=== PATIENT | male | born 1965 | race Caucasian/White ===

== ENCOUNTER → 2018-01-17 | Outpatient (CLI) | payer MEDICAID ==
[~2018-01-17] MED LIST: OMEP20TA62 PO
[2018-01-17 10:25] LABS: BASOPHILS # (AUTO) 0.03 x10^3/uL (0-0.1); BASOPHILS % (AUTO) 1 % (0-1); EOSINOPHILS # (AUTO) 0.27 x10^3/uL (0-0.4); EOSINOPHILS % (AUTO) 5 % (1-7); LYMPHOCYTES # (AUTO) 1.43 x10^3/uL (1-3.4); LYMPHOCYTES % (AUTO) 27 % (22-44); MD NO; MEAN CORPUSCULAR HEMOGLOBIN 29.1 pg (27.5-34.5); MEAN CORPUSCULAR HGB CONC 34.4 g/dL (33.2-36.2); MEAN CORPUSCULAR VOLUME 84.7 fL (81-97); MEAN PLATELET VOLUME 6.2 fL (7.4-10.4); MONOCYTES # (AUTO) 0.52 x10^3/uL (0.2-0.8); MONOCYTES % (AUTO) 10 % (2-9); NEUTROPHILS % (AUTO) 57 % (42-75); PLATELET COUNT 238 x10^3/uL (130-400); RED BLOOD COUNT 5.57 x10^6/uL (4.38-5.82); RED CELL DISTRIBUTION WIDTH 13.3 % (9.4-14.8)
[2018-01-17 10:31] LABS: INTERNATIONAL NORMALIZED RATIO 1.02 (0.93-1.1); PROTHROMBIN TIME 10.5 Seconds (9.6-11.5)
[2018-01-17 10:36] LABS: ALANINE AMINOTRANSFERASE 48 U/L (12-78); ALBUMIN 3.8 g/dL (3.4-5.0); ANION GAP 7 mmol/L (5-15); CALCIUM 8.6 mg/dL (8.5-10.1); CHLORIDE 110 mmol/L (98-107); CREATININE 1.04 mg/dL (0.7-1.3)
[2018-01-17 10:38] LABS: ALKALINE PHOSPHATASE 76 U/L (45-117); BILIRUBIN,TOTAL 0.7 mg/dL (0.2-1.0); TOTAL PROTEIN 7.9 g/dL (6.4-8.2)
== END | disposition home or self-care (01) ==
LOC: STAR 09:26
PROVIDERS: ATTEND Surgery
DX: Z01.818 Encounter for other preprocedural examination (principal)
CPT/HCPCS: 36415; 80053; 85025; 85610; 93005

== ENCOUNTER 2018-01-24 06:51 | Day surgery (SDC) | payer MEDICAID ==
[~2018-01-24] VITALS: Ht 182.9 cm; Wt 105.5 kg
[2018-01-24] MEDS ORDERED: BUPIVACAINE 0.25% ONE (06:56)
[2018-01-24 07:16] VITALS: BP 130/95
[2018-01-24] MEDS ORDERED: LACTATED RINGERS 1,000 ML IV SCH (07:21)
[2018-01-24] MEDS ORDERED: MIDAZOLAM 1 MG/ML, 2ML ONE (08:00)
[2018-01-24] MEDS ORDERED: FENTANYL PF 250 MCG/5ML ONE ×2 (08:00→11:00)
[2018-01-24] MEDS ORDERED: CEFAZOLIN 1,000 MG ONE ×2 (09:13)
[2018-01-24] MEDS ORDERED: PROPOFOL 10 MG/ML, 20ML ONE (09:14)
[2018-01-24] MEDS ORDERED: DEXAMETHASONE 4 MG/ML, 1ML ONE ×5 (09:14→10:39)
[2018-01-24] MEDS ORDERED: ONDANSETRON 2MG/ML, 2ML ONE (09:14)
[2018-01-24] MEDS ORDERED: BUPIVACAINE/PF-EPI 0.25% 1:200K IM ONE (09:28)
[2018-01-24] MEDS ORDERED: ONDANSETRON ODT 8 MG PO PRN (10:00)
[2018-01-24] MEDS ORDERED: OXYcodone 5 MG/5 ML ORAL.SOL UDC PO PRN (10:00)
[2018-01-24] MEDS ORDERED: ACETAMINOPHEN 325 MG TABLET PO PRN (10:00)
[2018-01-24] MEDS ORDERED: MEPERIDINE/PF 25MG/0.5ML IVPush PRN (10:00)
[2018-01-24] MEDS ORDERED: HYDROmorphone 1 MG/ML, 1ML IV PRN (10:00)
[2018-01-24] MEDS ORDERED: FENTANYL PF 100 MCG/2ML IV PRN (10:00)
[2018-01-24] MEDS ORDERED: FENTANYL PF 100 MCG/2ML ONE (10:01)
[2018-01-24] MEDS ORDERED: PROPOFOL 50 ML ONE (10:36)
[2018-01-24] MEDS ORDERED: ACETAMINOPHEN 650 MG/20.3 ML UDC ONE (10:47)
[2018-01-24] MEDS ORDERED: OXYcodone 5 MG/5 ML ORAL.SOL UDC ONE (10:47)
[2018-01-24] MEDS ORDERED: KETOROLAC 30 MG/1 ML ONE (15:42)
== END 2018-01-24 12:40 ==
LOC: OUT 06:51
PROVIDERS: ATTEND Surgery
DX: K40.90 Unilateral inguinal hernia, without obstruction or gangrene, not specified as recurrent (principal); Z85.46 Personal history of malignant neoplasm of prostate; K21.9 Gastro-esophageal reflux disease without esophagitis
CPT/HCPCS: 49505; C1781; J0690; J1100; J1885; J2250; J2405; J2704; J3010; J3490; J7120

== ENCOUNTER → 2020-08-12 | Outpatient (CLI) | payer MEDICAID ==
[~2020-08-12] MED LIST changes: +OMNIPAQUE 350 MG/ML, 75ML BOTTLE ONE
== END | disposition home or self-care (01) ==
LOC: CFH 13:41
DX: R91.8 Other nonspecific abnormal finding of lung field (principal); D48.0 Neoplasm of uncertain behavior of bone and articular cartilage
CPT/HCPCS: 71260; Q9967

== ENCOUNTER 2020-09-18 07:04 | Emergency (ER) | payer MEDICAID ==
[~2020-09-18] VITALS: Ht 182.9 cm; Wt 92.9 kg
[~2020-09-18 07:04] MED LIST changes: -OMNIPAQUE 350 MG/ML, 75ML BOTTLE ONE
--- NOTE | 2020-09-18 07:20 | NUR ---
pt is a 55m who comes in complaining of hematuria. He denies any pain except for 1 episode 5 days ago. He had a work up with [facility] medicine this week that showed blood in his urine and referred him to his urologist for CT stating it could be cancer. He had a prostectomy 3-4 years ago for prostate cancer. He was very anxious about it and came to the ER this morning. Urine specimin collected, continuous sp02 and cycling vitals in place. Call light within reach.
[2020-09-18 07:48] LABS: MICROSCOPIC AUTO
[2020-09-18 07:50] LABS: BASOPHILS % (AUTO) 1 % (0-1); EOSINOPHILS % (AUTO) 1 % (1-7); LYMPHOCYTES % (AUTO) 21 % (22-44); MEAN CORPUSCULAR HEMOGLOBIN 29.7 pg (27.5-34.5); MEAN CORPUSCULAR HGB CONC 34.5 g/dL (33.2-36.2); MONOCYTES % (AUTO) 7 % (2-9); NEUTROPHILS % (AUTO) 71 % (42-75); PLATELET COUNT 216 x10^3/uL (130-400); RED BLOOD COUNT 5.38 x10^6/uL (4.38-5.82); RED CELL DISTRIBUTION WIDTH 13.3 % (9.4-14.8)
[2020-09-18 07:53] LABS: MD NO
[2020-09-18 07:59] LABS: ALANINE AMINOTRANSFERASE 30 U/L (12-78); ALBUMIN 3.9 g/dL (3.4-5.0); ANION GAP 10 mmol/L (5-15); CALCIUM 8.5 mg/dL (8.5-10.1); CHLORIDE 111 mmol/L (98-107); CREATININE 1.09 mg/dL (0.7-1.3)
[2020-09-18] MEDS ORDERED: SODIUM CHLORIDE FLUSH 10ML SYR IVF ONE (08:00)
[2020-09-18 08:01] LABS: ALKALINE PHOSPHATASE 69 U/L (45-117); BILIRUBIN,TOTAL 0.7 mg/dL (0.2-1.0); TOTAL PROTEIN 7.8 g/dL (6.4-8.2)
--- NOTE | 2020-09-18 08:11 | NUR ---
pt to ct via topher
--- NOTE | 2020-09-18 08:13 | NUR ---
pt back from CT
[2020-09-18] MEDS ORDERED: OMNIPAQUE 350 MG/ML, 100ML BOTTLE ONE (08:15)
--- NOTE | 2020-09-18 08:47 | NUR ---
pt ambulated to restroom with steady gait.
--- NOTE | 2020-09-18 09:05 | NUR ---
Dr. Red at bedside for discussion of plan of care
[2020-09-18 09:53] VITALS: BP 130/92
== END 2020-09-18 09:55 | disposition home or self-care (01) ==
LOC: ED 09:11
DX: R31.29 Other microscopic hematuria (principal); R94.8 Abnormal results of function studies of other organs and systems; K21.9 Gastro-esophageal reflux disease without esophagitis; Z85.46 Personal history of malignant neoplasm of prostate
CPT/HCPCS: 36415; 74177; 80053; 81001; 83690; 85025; 99285; Q9967

== ENCOUNTER 2020-09-29 21:43 | Inpatient (IN) | payer MEDICAID ==
[~2020-09-29] VITALS: Ht 182.9 cm; Wt 90.8 kg
[2020-09-29] MEDS ORDERED: SODIUM CHLORIDE 0.9% 1,000ML IVBOLUS ONE (22:00)
[2020-09-29 22:32] LABS: BASOPHILS % (AUTO) 0 % (0-1); EOSINOPHILS % (AUTO) 1 % (1-7); LYMPHOCYTES % (AUTO) 15 % (22-44); MEAN CORPUSCULAR HEMOGLOBIN 29.6 pg (27.5-34.5); MEAN CORPUSCULAR HGB CONC 34.9 g/dL (33.2-36.2); MEAN PLATELET VOLUME 6.4 fL (7.4-10.4); MONOCYTES % (AUTO) 7 % (2-9); NEUTROPHILS % (AUTO) 77 % (42-75); PLATELET COUNT 177 x10^3/uL (130-400); RED BLOOD COUNT 5.22 x10^6/uL (4.38-5.82); RED CELL DISTRIBUTION WIDTH 13.3 % (9.4-14.8)
[2020-09-29 22:34] LABS: MD NO
[2020-09-29 22:42] LABS: ALANINE AMINOTRANSFERASE 32 U/L (12-78); ALBUMIN 3.8 g/dL (3.4-5.0); ANION GAP 9 mmol/L (5-15); CALCIUM 8.4 mg/dL (8.5-10.1); CHLORIDE 110 mmol/L (98-107)
[2020-09-29 22:45] LABS: ALKALINE PHOSPHATASE 63 U/L (45-117); BILIRUBIN,TOTAL 0.6 mg/dL (0.2-1.0); CREATININE 0.98 mg/dL (0.7-1.3); TOTAL PROTEIN 7.6 g/dL (6.4-8.2)
[2020-09-30] MEDS ORDERED: SODIUM CHLORIDE 0.9% 1,000ML IVBOLUS ONE
[2020-09-30] MEDS ORDERED: ONDANSETRON 2MG/ML, 2ML ONE (00:45)
[2020-09-30] MEDS ORDERED: HYDROmorphone 1 MG/ML, 1ML INJ ONE (00:45)
[2020-09-30] MEDS ORDERED: HYDROmorphone 2 MG/ML, 1ML IVPush PRN ×2 (01:00→03:30)
[2020-09-30] MEDS ORDERED: ONDANSETRON 2MG/ML, 2ML IVPush ONE (01:00)
[2020-09-30] MEDS ORDERED: OMNIPAQUE 350 MG/ML, 100ML BOTTLE ONE (01:19)
[2020-09-30] MEDS ORDERED: SODIUM CHLORIDE 0.9% 1,000 ML IV ONE (02:30)
[2020-09-30] MEDS ORDERED: MORPHINE SULFATE 4 MG/ML, 1ML IVPush PRN (02:30)
[2020-09-30] MEDS ORDERED: ONDANSETRON 2MG/ML, 2ML IVPush PRN (02:30)
[2020-09-30] MEDS ORDERED: DOCUSATE 100 MG CAPSULE PO PRN (03:30)
[2020-09-30] MEDS ORDERED: ENALAPRILAT 1.25 MG/ML, 2ML IVPush PRN (03:30)
[2020-09-30] MEDS ORDERED: MELATONIN 5 MG TABLET PO PRN (03:30)
[2020-09-30] MEDS ORDERED: ONDANSETRON ODT 4 MG PO PRN (03:30)
[2020-09-30] MEDS ORDERED: HYDROcodone/APAP 5/325 TABLET PO PRN (03:30)
[2020-09-30] MEDS ORDERED: OMNIPAQUE 350 MG/ML, 75ML BOTTLE ONE (03:36)
[2020-09-30] MEDS: LACTATED RINGERS 1,000 ML IV SCH ×5 (03:48→21:26)
[2020-09-30 03:54] VITALS: BP 129/81
[2020-09-30 07:00] VITALS: BP 134/89
[2020-09-30] MEDS: ENOXAPARIN 40 MG/0.4 ML SQ SCH (08:00)
[2020-09-30] MEDS: ACETAMINOPHEN 325 MG TABLET PO PRN (13:40)
[2020-09-30 13:44] VITALS: BP 131/88
[2020-09-30 19:50] VITALS: BP 141/95
[2020-09-30] MEDS: KETOROLAC 30 MG/1 ML IV PRN (19:53)
[2020-09-30 19:54] VITALS: BP 141/95
[2020-10-01 01:32] VITALS: BP 135/87
[2020-10-01] MEDS: LACTATED RINGERS 1,000 ML IV SCH ×4 (01:34→13:11)
[2020-10-01] MEDS: KETOROLAC 30 MG/1 ML IV PRN ×2 (05:38→12:52)
[2020-10-01 05:46] LABS: ALBUMIN 3.2 g/dL (3.4-5.0); ANION GAP 7 mmol/L (5-15); BASOPHILS % (AUTO) 0 % (0-1); CALCIUM 8.3 mg/dL (8.5-10.1); CHLORIDE 110 mmol/L (98-107); EOSINOPHILS % (AUTO) 0 % (1-7); LYMPHOCYTES % (AUTO) 7 % (22-44); MEAN CORPUSCULAR HEMOGLOBIN 29.7 pg (27.5-34.5); MEAN CORPUSCULAR HGB CONC 35.1 g/dL (33.2-36.2); MEAN PLATELET VOLUME 6.2 fL (7.4-10.4); MONOCYTES % (AUTO) 7 % (2-9); NEUTROPHILS % (AUTO) 85 % (42-75); PLATELET COUNT 157 x10^3/uL (130-400); RED BLOOD COUNT 4.61 x10^6/uL (4.38-5.82); RED CELL DISTRIBUTION WIDTH 13.7 % (9.4-14.8)
[2020-10-01 05:50] LABS: ALANINE AMINOTRANSFERASE 18 U/L (12-78); ALKALINE PHOSPHATASE 50 U/L (45-117); BILIRUBIN,TOTAL 1.3 mg/dL (0.2-1.0); CHOL/HDL RATIO 2.3; CHOLESTEROL, TOTAL 101 mg/dL (140-239); CREATININE 0.71 mg/dL (0.7-1.3); HDL CHOL % 43 % (26-37); HDL CHOLESTEROL (DIRECT) 43 mg/dL (40-60); LDL CHOLESTEROL,CALCULATED 50 mg/dL (54-169); LDL/HDL RATIO 1.2 (0.5-3.0); TOTAL PROTEIN 6.3 g/dL (6.4-8.2); TRIGLYCERIDES 42 mg/dL (50-200); VLDL CHOLESTEROL 8 mg/dL (0-25)
[2020-10-01 05:58] LABS: MD NO
[2020-10-01 06:46] VITALS: BP 126/83
[2020-10-01] MEDS: ENOXAPARIN 40 MG/0.4 ML SQ SCH (08:00)
[2020-10-01] MEDS: ACETAMINOPHEN 325 MG TABLET PO PRN (11:31)
[2020-10-01 12:53] VITALS: BP 131/77
[2020-10-01] MEDS ORDERED: ASA/APAP/ CAFFEINE TABLET PO PRN (13:30)
== END 2020-10-01 15:30 | disposition home or self-care (01) | DRG 440 ==
LOC: ED 23:00 → EDIP 09-30 02:29 → 3N 09-30 03:05
PROVIDERS: ADMIT Student in an Organized Health Care Education/Training Program; ATTEND Student in an Organized Health Care Education/Training Program
DX: K85.00 Idiopathic acute pancreatitis without necrosis or infection (principal); K21.9 Gastro-esophageal reflux disease without esophagitis; Z82.49 Family history of ischemic heart disease and other diseases of the circulatory system; Z90.79 Acquired absence of other genital organ(s); Z72.89 Other problems related to lifestyle
CPT/HCPCS: 36415; 74174; 74177; 80053; 80061; 83615; 83690; 85025; 96361; 96374; 96375; 99285; G0378; J1170; J1885; J2405; Q9967; J7030; J7120

== ENCOUNTER 2020-10-02 13:20 | Emergency (ER) | payer MEDICAID ==
[~2020-10-02] VITALS: Ht 170.2 cm; Wt 92.7 kg
--- NOTE | 2020-10-02 13:40 | NUR ---
ER PA IN TO SEE PT.
[2020-10-02 14:12] LABS: BASOPHILS % (AUTO) 0 % (0-1); EOSINOPHILS % (AUTO) 1 % (1-7); LYMPHOCYTES % (AUTO) 5 % (22-44); MEAN CORPUSCULAR HEMOGLOBIN 29.6 pg (27.5-34.5); MEAN CORPUSCULAR HGB CONC 34.8 g/dL (33.2-36.2); MEAN PLATELET VOLUME 6.4 fL (7.4-10.4); MONOCYTES % (AUTO) 8 % (2-9); NEUTROPHILS % (AUTO) 85 % (42-75); PLATELET COUNT 173 x10^3/uL (130-400); RED BLOOD COUNT 4.75 x10^6/uL (4.38-5.82); RED CELL DISTRIBUTION WIDTH 13.3 % (9.4-14.8)
[2020-10-02 14:26] LABS: ALANINE AMINOTRANSFERASE 18 U/L (12-78); ALBUMIN 3.1 g/dL (3.4-5.0); ANION GAP 10 mmol/L (5-15); CALCIUM 8.4 mg/dL (8.5-10.1); CHLORIDE 109 mmol/L (98-107); CREATININE 0.83 mg/dL (0.7-1.3)
[2020-10-02 14:29] LABS: MICROSCOPIC INDICATED
[2020-10-02 14:29] LABS: ALKALINE PHOSPHATASE 55 U/L (45-117); BILIRUBIN,TOTAL 1.4 mg/dL (0.2-1.0); TOTAL PROTEIN 7.3 g/dL (6.4-8.2)
[2020-10-02 14:42] LABS: MD SCAN
[2020-10-02 15:30] VITALS: BP 143/98
--- NOTE | 2020-10-02 15:56 | NUR ---
D/C INSTRUCTIONS & F/U APPT RV'WD WITH PT, HE VERBALIZES UNDERSTANDING. PT UNDERSTANDS TO DRINK PLENTY OF FLUIDS AND RETURN TO ED FOR ANY WORSENING OR CONCERNING SYMPTOMS. AMBULATED OUT OF ED WITHOUT DIFFICULTY.
== END 2020-10-02 16:01 | disposition home or self-care (01) ==
LOC: ED 13:48
DX: R31.0 Gross hematuria (principal); K85.90 Acute pancreatitis without necrosis or infection, unspecified; K21.9 Gastro-esophageal reflux disease without esophagitis; Z85.46 Personal history of malignant neoplasm of prostate
CPT/HCPCS: 36415; 80053; 81001; 83690; 85025; 87086; 99283

== ENCOUNTER → 2021-01-07 | Outpatient (CLI) | payer MEDICAID ==
[~2021-01-07] MED LIST changes: +OMNIPAQUE 350 MG/ML, 100ML BOTTLE ONE
== END | disposition home or self-care (01) ==
LOC: CFH 08:17
PROVIDERS: ATTEND Internal Medicine Gastroenterology
DX: K76.0 Fatty (change of) liver, not elsewhere classified (principal); K44.9 Diaphragmatic hernia without obstruction or gangrene; R19.09 Other intra-abdominal and pelvic swelling, mass and lump
CPT/HCPCS: 74178; Q9967